=== PATIENT | female | born 1975 | race Caucasian/White ===

== ENCOUNTER 2023-10-27 00:54 | Emergency (ER) | payer BC, SELFPAY ==
[2023-10-27 00:57] VITALS: BP 116/72; PULSE 72; RESP 18; TEMP 36.8; O2SAT 98; BMI 29.2
--- NOTE | 2023-10-27 00:57 | ED.GENADULT ---
HPI - General Adult General Time Seen by Provider: 00:57 Date Seen: 10/27/23 Chief complaint: Abdominal Pain Stated complaint: Abdominal Pain Time Seen by Provider: 10/27/23 00:56 Source: patient, RN notes reviewed and old records reviewed Mode of arrival: ambulatory Limitations: no limitations History of Present Illness HPI narrative: 48-year-old female who presents today with abdominal pain. She has had mid abdominal pain since yesterday, she describes it as cramping ?like having a baby. ? She has had diarrhea with this, no blood in the stools. Denies vaginal bleeding, no urinary symptoms. Denies nausea or vomiting. Has not taken anything for pain. No cough, runny nose, fever. Related Data Previous Rx's ?Medication ?Instructions ?Recorded dicyclomine 20 mg tablet 20 mg PO QID PRN abdominal pain 10/27/23 #20 tabs Allergies Allergy/AdvReac Type Severity Reaction Status Date / Time No Known Drug Allergies Allergy Verified 10/27/23 01:04 [facility] Social History Smoking Status: Never smoker Do you use any of these nicotine containing products: None Non-prescribed substance use: denies use Exam Narrative: Exam Narrative: General: Well-developed and well-nourished, no acute distress Head: Atraumatic and normocephalic Eyes: Pupils are equal reactive, extraocular motions intact, conjunctiva clear ENT: External nose and ears are normal, posterior pharynx without erythema or exudate Neck: No midline cervical tenderness, full spontaneous range of motion the neck, trachea midline, no adenopathy Heart: Regular rate and rhythm no murmurs or thrills Lungs: Clear to auscultation bilaterally without wheezes or crackles Abdomen: Soft, suprapubic and periumbilical tenderness, nondistended with active bowel sounds Musculoskeletal: No tenderness, deformity, or edema Neurologic: Awake, alert, and oriented x3, no gross focal neurologic deficits, cranial nerves intact as tested Psych: Mood and affect are appropriate Skin: No rashes Const: Vital Signs, click to edit/add: Vital Signs - 24 hr 10/27/23 00:57 Temperature 98.2 F Pulse Rate [Left P ulse Oximeter] 72 Respiratory Rate 18 Blood Pressure [Ri ght Upper Arm] 116/72 Pulse Oximetry 98 Oxygen Delivery Me thod Room Air Course Course ED Course: Patient seen and examined, reviewed prior records. Patient with epigastric and midline lower abdominal pain since yesterday. Diarrhea, and crampy sensation. Patient says she does not have periods anymore, no prior surgeries. Labs was, fluids, Toradol ordered along with CT abdomen and pelvis to evaluate for colitis, enteritis, diverticulitis. Reevaluation(s) Time of Reevaluation #1: 01:57 Reevaluation #1: Labs ordered and independently interpreted by me with normal CBC, normal basic metabolic panel. CT scan abdomen of independent interpreted by me diffuse colitis. Patient will be started on Bentyl for pain, follow-up with primary care and consider GI referral. Vital Signs Vital signs: Initial Vital Signs Temperature 98.2 F 10/27/23 00:57 Temperature Source Temporal Artery Scan 10/27/23 00:57 Pulse Rate 72 10/27/23 00:57 Pulse Rhythm Regular 10/27/23 00:57 Respiratory Rate 18 10/27/23 00:57 Blood Pressure 116/72 10/27/23 00:57 Blood Pressure Mean 86 10/27/23 00:57 Blood Pressure Position Sitting 10/27/23 00:57 Pulse Oximetry 98 10/27/23 00:57 Oxygen Delivery Method Room Air 10/27/23 00:57 Vital Signs Temperature 98.2 F 10/27/23 00:57 Pulse Rate 72 10/27/23 00:57 Respiratory Rate 18 10/27/23 00:57 Blood Pressure 116/72 10/27/23 00:57 Pulse Oximetry 98 10/27/23 00:57 Oxygen Delivery Method Room Air 10/27/23 00:57 Temperature 98.2 F 10/27/23 00:57 Pulse Rate 72 10/27/23 00:57 Respiratory Rate 18 10/27/23 00:57 Blood Pressure 116/72 10/27/23 00:57 Pulse Oximetry 98 10/27/23 00:57 Oxygen Delivery Method Room Air 10/27/23 00:57 Medications Administered Medications: Discontinued Medications Generic Name Dose Route Start Last Admin Trade Name Freq PRN Reason Stop Dose Admin Sodium Chloride 1,000 mls @ 1,000 mls/hr 10/27/23 01:15 10/27/23 01:32 0.9 % Sodium Chloride 1000 Ml IV 10/27/23 02:14 1,000 mls/hr .Q1H KAREN Administration Ketorolac Tromethamine 15 mg 10/27/23 01:12 10/27/23 01:33 Ketorolac 15 Mg/Ml Inj IVP 10/27/23 01:13 15 mg ONCE ONE Administration Medical Decision Making Lab Data Labs: Lab Results 10/27/23 Range/Units 01:20 WBC 9.10 (4.50-11.00) K/uL RBC 4.12 (4.00-5.20) m/uL Hgb 12.6 (12.0-16.0) gm/dL Hct 37.3 (33.0-51.0) % MCV 91 (80-100) fL MCH 31 (26-34) pg MCHC 34 (32-36) gm/dL RDW Coeff of Maria Luz 13.8 (11.5-15.5) % Plt Count 170 (140-440) K/uL Neut % (Auto) 79.3 H (42.0-72.0) % Lymph % (Auto) 11.6 L (20-44) % Forest % (Auto) 8.5 (0.0-11.0) % Eos % (Auto) 0.3 (0.0-7.0) % Baso % (Auto) 0.2 (0.0-3.0) % Neut # (Auto) 7.20 H (1.7-7.0) K/uL Lymph # (Auto) 1.10 (0.90-2.90) K/uL Forest # (Auto) 0.80 (0.00-0.90) K/UL Eos # (Auto) 0.03 (0.00-0.50) K/uL Baso # (Auto) 0.02 (0.00-0.30) K/uL Abs Immat Gran (auto) 0.01 (0.00-0.30) K/uL Imm/Tot Granulo (auto) 0.1 % Sodium 137 (135-149) mmol/L Potassium 3.5 L (3.6-5.1) mmol/L Chloride 102 (96-114) mmol/L Carbon Dioxide 24 (20-32) mmol/L Anion Gap 11 (7-15) mEq/L BUN 12 (5-24) mg/dL Creatinine 0.6 (0.5-1.5) mg/dL Estimated Creat Clear 113.26 Estimated GFR 112 ml/min Glucose 108 (60-115) mg/dL Calcium 8.4 (8.4-10.6) mg/dL Discharge Plan Discharge Clinical Impression: Colitis Patient Disposition: Home, Self-Care Condition: Stable Instructions: Colitis (ED) Additional Instructions: Liquid diet for 24 hours Follow-up with your primary care provider next week You may take Imodium [id number] as needed for diarrhea Activity Level: No Restrictions Discharge Diet: Regular Prescriptions: New dicyclomine 20 mg tablet 20 mg PO QID PRN (Reason: abdominal pain) Qty: 20 0RF Follow Up/Referrals: REBECCA MELARA DO [Primary Care Provider] - Stand Alone Forms: MyHealth Info Instructions
--- NOTE | 2023-10-27 01:12 | CRLHL7_ITS ---
For Patients: As a result of the Century Cures Act, medical imaging exams and procedure reports are released immediately into your electronic medical record. You may view this report before your referring provider. If you have questions, please contact your health care provider. INDICATION: Abdominal pain. TECHNIQUE: CT abdomen and pelvis acquired with 66 cc Isovue 370 IV contrast. COMPARISON: None. FINDINGS: Lower chest: Unremarkable. Liver: Focal fatty infiltration adjacent to the falciform ligament. No suspicious masses. Gallbladder and bile ducts: Unremarkable. No stones or inflammation. No biliary ductal dilatation. Spleen: Unremarkable. Normal in size. No masses. Adrenal glands: Unremarkable. No nodules. Pancreas: Unremarkable. No mass or inflammation. Kidneys: Unremarkable. No suspicious masses, stones, or hydronephrosis. GI tract: Wall thickening and edema involving nearly the entire colon. No evidence of obstruction. Normal appendix. Lymph nodes: No lymphadenopathy. Vasculature: Unremarkable. Omentum/Peritoneum/Abdominal Wall: Small amount of free fluid in the pelvis. No focal fluid collection. No free air. Pelvis: Unremarkable. Bones: Unremarkable for age. IMPRESSION: Colitis of nearly the entire colon. Inflammatory bowel disease should be considered. Please note that all CT scans at this facility use dose modulation, iterative reconstruction, and/or weight-based dosing when appropriate to reduce radiation dose to as low as reasonably achievable. Dictated by Owen Smith MD @ 10/27/2023 2:23:03 AM (Electronically Signed)
--- OUTSIDE RECORDS SUMMARY | 2023-10-27 01:23 | XMS_ITS | Data Portability ---
Author Organization [employer] Steven [facility]a [facility] Address [address] [place] [address] [place] [address] Assessment No assessment recorded. Plan of Treatment Reminders Order Date Submit Date Provider Last Modified By Organization Details Last Modified Time Details Appointments None recorded. Lab CBC 2023 024 [facility], [address] [place], [address], 4 04:56:01 CMP, serum or plasma 2023 024 [facility], [address] [place], [address], 4 04:56:02 HbA1c (hemoglobi n A1c), blood 2023 024 [facility], [address] [place], [address], 4 04:56:03 lipid panel, serum 2023 024 [facility], [address] [place], [address], 4 04:56:03 TSH, serum or plasma 2023 024 [facility], [address] [place], [address], 4 04:56:03 Referral None recorded. Procedures None recorded. Surgeries None recorded. Imaging None recorded. Medication Orders selenium sulfide 2.3 % shampoo 2023 024 [facility], [facility] [place], [address], 11:34:31 Patient TargetsNo targets recorded. Patient Instructions Encounter Date Encounter Id Patient Instructions Last Modified By Organization Details Last Modified Time 03/08/2021 more expensive m eds available blessing Not available 03/08/2021 19:37:27 seen for depress ion in the past, but not depressed now blessing Not available 03/08/2021 19:49:34 11/17/2020 [id number] Looks like a subconjunctival hemorrhage. this should resolve over the next 1-2 weeks. see eye doctor if re occuring. [email or web address] Not available 11/17/2020 21:06:13 Reason for Referral None Reported. Medical Equipment None Reported. Medications Name Sig Start Date Stop Date Status Note LastModified by Organization Details LastModified Time ketoconazol e 2 % shampoo APPLY TO THE AFFECTED AREA(S), LATHER, LEAVE IN PLACE FOR 5 MINUTES, AND THEN RINSE OFF WITH WATER BY TOPICAL ROUTE ONCE DAILY active Not Available Not Available No t Available meloxicam 15 mg tablet TAKE 1 TABLET (15 MG) BY MOUTH ONCE DAILY. active Not Available Not Available No t Available penicillin V potassium 500 mg tablet take 1 tablet by oral route every 8 hours for 10 days to help tooth infection 09/22 completed Not Available Not Available Not Available citalopram 20 mg tablet TAKE 1 TABLET (20 MG) BY MOUTH EVERY MORNING. active Not Available Not Available No t Available Celexa 40 mg tablet take 1 tablet by oral route every day 03/08 completed Not Available Not Available Not Available mirtazapine 7.5 mg tablet TAKE 1 TABLET (7.5 MG) BY MOUTH AT BEDTIME. active Not Available Not Available No t Available Multiple Vitamins one a day 2020 active Not Available Not Available Not Avai lable selenium sulfide 2.3 % shampoo APPLY TO WET SCALP TOPICALLY ONCE WEEKLY WORK INTO A FULL LATHER,LE AVE ON SCALP FOR 2-3 MINUTES RINSE THOROUGHL Y THEN PAT DRY active Not Available Not Available No t Available Vitals Date Recorded Body height Body mass index (BMI) Body weight Heart rate Systolic blood pressure Diastolic blood pressure Provider Name and Address Organization Details Last Updated DateTime 149.86 cm 26.9 kg/m2 67468.7 9 g 64 /min 104 mm[Hg] 62 mm[Hg] Afua Cowan [facility] [employer] 20:52:35 Date Recorded Body height Body mass index (BMI) Body weight Provider Name and Address Organization Details Last Updated DateTime 03/08/2021 149.86 cm 27.9 kg/m2 36593.75 g Joss Clay MD [address] [place], [address], [facility] [employer] 03/08/2021 19:34:11 Date Recorded Heart rate Heart rate Systolic blood pressure Diastolic blood pressure Provider Name and Address Organization Details Last Updated DateTime 08/22/2023 61 /min 61 /min 95 mm[Hg] 60 mm[Hg] Karen Diaz MD [address] [place], [address] , [facility] [employer] 08/22/2023 11:45:50 Date Recorded Systolic blood pressure Diastolic blood pressure Provider Name and Address Organization Details Last Updated DateTime 09/26/2018 100 mm[Hg] 62 mm[Hg] Not Available [facility] 0 12/22/2019 12:57:28 Date Recorded Systolic blood pressure Diastolic blood pressure Provider Name and Address Organization Details Last Updated DateTime 08/10/2015 101 mm[Hg] 61 mm[Hg] Not Available [facility] 0 12/22/2019 12:57:28 Date Recorded Systolic blood pressure Diastolic blood pressure Provider Name and Address Organization Details Last Updated DateTime 04/11/2016 105 mm[Hg] 48 mm[Hg] Not Available [facility] 12/22/2019 12:57:28 Date Recorded Systolic blood pressure Diastolic blood pressure Provider Name and Address Organization Details Last Updated DateTime 04/11/2016 105 mm[Hg] 48 mm[Hg] Not Available [facility] 0 12/22/2019 12:57:28 Date Recorded Systolic blood pressure Diastolic blood pressure Provider Name and Address Organization Details Last Updated DateTime 08/02/2017 105 mm[Hg] 62 mm[Hg] Not Available [facility] 0 12/22/2019 12:57:28 Date Recorded Systolic blood pressure Diastolic blood pressure Provider Name and Address Organization Details Last Updated DateTime 09/20/2017 108 mm[Hg] 49 mm[Hg] Not Available [facility] 0 12/22/2019 12:57:28 Date Recorded Systolic blood pressure Diastolic blood pressure Provider Name and Address Organization Details Last Updated DateTime 03/07/2018 112 mm[Hg] 38 mm[Hg] Not Available [facility] 0 12/22/2019 12:57:28 Date Recorded Systolic blood pressure Diastolic blood pressure Provider Name and Address Organization Details Last Updated DateTime 09/20/2017 114 mm[Hg] 61 mm[Hg] Not Available [facility] 0 12/22/2019 12:57:28 Date Recorded Systolic blood pressure Diastolic blood pressure Provider Name and Address Organization Details Last Updated DateTime 07/31/2019 116 mm[Hg] 58 mm[Hg] Not Available [facility] 0 12/22/2019 12:57:28 Date Recorded Systolic blood pressure Diastolic blood pressure Provider Name and Address Organization Details Last Updated DateTime 05/02/2016 123 mm[Hg] 56 mm[Hg] Not Available [facility] 0 12/22/2019 12:57:28 Date Recorded Systolic blood pressure Diastolic blood pressure Provider Name and Address Organization Details Last Updated DateTime 09/23/2015 91 mm[Hg] 58 mm[Hg] Not Available [facility] 12:57:28 Date Recorded Systolic blood pressure Diastolic blood pressure Provider Name and Address Organization Details Last Updated DateTime 09/05/2018 91 mm[Hg] 61 mm[Hg] Not Available [facility] 12:57:28 Date Recorded Systolic blood pressure Diastolic blood pressure Provider Name and Address Organization Details Last Updated DateTime 10/11/2017 99 mm[Hg] 60 mm[Hg] Not Available [facility] 12:57:28 Social History None recorded. Functional Status None recorded. Mental Status None recorded. Family History Relationship Description Onset Age of this Age Resolved Age Notes Father Malignant tumor of pharynx throat cancer in father Mother Malignant tumor of salivary gland mother had a cancer in cheek/face, likely salivary gland Medical History No medical history recorded. Gynecological HistoryNo gynecological history recorded. Obstetrics History GPAL:G 0 P 0 0 0 0 Past Encounters Encounter ID Performer Location Encounter Start Date Encounter Closed Date Diagnosis/Indication Diagnosis SNOMED-CT Code [id number] Seth Nam MD [facility] [address] [facility] [place] [address] 11/17/2020 20:39:56 11/17/2020 21:15:33 Subconjunctival hemorrhage of left eye [id number] Joss Clay MD [facility] [address] [place] [address] 03/08/2021 18:15:11 03/08/2021 19:08:44 Loss of hair [id number] [id number] Karen Diaz MD [facility] [address] [place] [address] 08/22/2023 11:01:14 08/22/2023 11:46:24 Seborrheic dermatitis of scalp 154685189 Severe dry skin 10743324 2 Fatigue 07741391 Health Concerns Section Related Observation LastModified by Organization Detai ls LastModified Time None Recorded Concern Status LastModified by Organization Details LastModified Time None Recorded Advance Directives Directive None Recorded Payers Encounter Date Sequence Insurance Name Policy Number Policy Barrios Covered Member ID Barrios Member ID Guarantor Name 08/22/2023 SLIDING FEE SCHEDULE - DISCOUNT Sarita Whitman Srinivasan 03/08/2021 SLIDING FEE SCHEDULE - DISCOUNT Sarita Sneedial Srinivasan 11/17/2020 SLIDING FEE SCHEDULE - DISCOUNT Sarita Whitman Srinivasan Notes Date Note Type Note Provider Name and Address Organization Details Recorded Time 11/17/2020 text/html HPI Notes: woke up with red eye on Sunday morning. no mattering or drainage. no history of glaucoma. no loss of vision. Seth Nam MD [address] [place], [address], [facility] [employer] 11/17/2020 21:11:41 03/08/2021 text/html HPI Notes: two months of hair loss, mainly top, menopause 6 mo ago, no hot flashes Joss Clay MD [address] [place], [address], [facility] [employer] 03/08/2021 19:51:20 08/22/2023 text/html HPI Notes: Shari franco is in today to discuss a few symptoms: - dry skin, more notable on back and extremities - dry/itchy scalp, also as noted a small skin breakdown/abrasion behind L ear. Has tried OTC shampoos without relief - sore throat, had been present intermittently for a few months when she made appt. It's better now, ocassionally noted in the morning with clear phlegm, no hemoptysis. No cough, no fever, no sick contacts. Hasn't taken anything for symptoms. No epigastric pain - recent dental infection; wasn't able to be seen in clinic, but took an abx from a store in [place] and improved - still not sleeping terribly well; uses Mirtazepine prn but notes hand cramping when she takes this. We discussed taking it with Magnesium at night to minimize this effect Nonsmoker, works at [employer], lives with and children. Karen Diaz MD [address] [place], [address], [facility] 08/22/2023 12:00:47 OBGyn Episode No OBEpisode recorded.
--- OUTSIDE RECORDS SUMMARY | 2023-10-27 01:23 | XMS_ITS | Clinical Summary ---
Author Organization [facility] Address [place], [place] [address] Care Team Providers Care Oil Processing Technician Name Role Phone Pcp, No Primary Care Provider Unavailabl e Allergies Active Allergy Reactions Criticality Noted Date Comments Iodinated Contrast Media Rash 12/18/2007 Should consider pre-medication with future CT scans Shellfish Containing Products Rash 04/08/2014 Medications Medication Sig Dispensed Refills Start Date End Date Status citalopram (CELEXA) 20 mg tabletIndications:Anxi ety,Moderate episode of recurrent major depressive disorder (HC) Take 1 Tablet (20 mg) by mouth every morning. 90 Tablet 1 04/04/2022 Active famotidine (PEPCID) 40 mg tabletIndications:Naye roesophageal reflux disease, unspecified whether esophagitis present Take 1 Tablet (40 mg) by mouth once daily. 90 Tablet 1 04/04/2022 Active Active Problems Problem Noted Date Diagnosed Date Other person consulting on behalf of another per son 08/08/2011 Anxiety 08/05/2010 Other chronic allergic conjunctivitis 10/06/2009 Moderate episode of recurrent major depressive d isorder 03/26/2008 Other insomnia 03/26/2008 Rosacea Allergic rhinitis, cause unspecified Encounters Date Type Department Care Team Description 09/21/[address] [facility] [address] [place] [address] Shweta Arthur MD Results 09/20/2023 2:45 PM CDT Office Visit [facility] [address] [place] [address] Shweta Arthur MD Throat Problem (sore throat, aching/burning); Fever (chills); Sinus Problem (x1 day); Pain 09/20/2023 Travel 08/06/[address] [facility] [address] [place] [address] Pcp, No Ear Pain/problem (Walked into the clinic no openings) from Last 3 Months Immunizations Name Administration Dates Next Due AMB Influenza, IIV3 (Age >=3 years)(Flu Clinic Only) 03/02/2012,03/18/2011,03/24/2008 AMB Influenza, IIV4 PF (=>6 mos Flulaval,Fluzone Fluarix)(Flu Clinic Only) 03/17/2014 Influenza, IIV3 (Age 6-35 mos) 03/18/2011 Influenza, IIV3 (Age >=3 years) 03/05/2009,04/29,04/27/2006 Influenza, IIV4 (=>6mos) MDV 03/21/2018,06/03/20 15 MMR 02/12/2021 Tdap 02/12/2021,11/05/2013,08/05/2010 Family History Medical History Relation Name Comments Good Health Brother x1 Good Health Father 60 Good Health Mother 60 Good Health Sister x9 Relation Name Status Comments Brother Father Mother Sister Social History Tobacco Use Types Packs/Day Years Used Date Smoking Tobacco: Never Smokeless Tobacco: Never Tobacco Cessation:Counseling Given: Yes Alcohol Use Standard Drinks/Week Comments No 0 (1 standard drink = 0.6 oz pur e alcohol) PHQ-2 Answer Date Recorded PHQ-2 TOTAL SCORE 0 04/04/2022 Social Connections Answer Date Recorded Frequency of Communication with Friends and Fami ly 0 09/20/2023 Financial Resource Strain Answer Date R ecorded Difficulty of Paying Living Expenses 3 09/20/2023 Difficulty of Paying Living Expenses Not on file 09/20/2023 Food Insecurity Answer Date Recorded Worried About Running Out of Food in the Last Ye ar 1 09/20/2023 Transportation Needs Answer Date Record ed Lack of Transportation (Medical) 1 09/20/2023 Housing Stability Answer Date Recorded Unable to Pay for Housing in the Last Year 1 09/20/2023 Sex and Gender Information Value Date Recorded Sex Assigned at Not on file Gender Identity Not on file Sexual Orientation Not on file Obstetrics History Para Term AB IAB SAB Ectopic Multiple Livin g Live Births 4 3 3 0 0 0 0 0 3 Date Outcome GA Total Labor Labor/2nd/3rd Weight Sex Delivery Anes PTL Ankita A1 A5 Name Cl in Comments:System Genera jef. Please review and update details. 1999 Term 40w 0d 48h 00m/ 3.18 kg (7 lb) Vag 2001 Term 40w 0d 11h 00m/ 2.72 kg (6 lb) Vag 2004 Term 40w 0d 9h 00m/ 2.72 kg (6 lb) Vag Comments x3 Last Filed Vital Signs Vital Sign Reading Time Taken Comments Blood Pressure 128/83 09/20/2023 3:03 PM CDT Pulse 84 09/20/2023 3:03 PM CDT Temperature 37.3 ??C (99.1 ??F) 09/20/2023 3:03 PM CD T Respiratory Rate 16 12/12/2021 8:27 AM CDT Oxygen Saturation 99% 09/20/2023 3:03 PM CDT Inhaled Oxygen Concentration - - Weight 59 kg (130 lb) 09/20/2023 3:03 PM CDT Height 149 cm (4' 10.66) 11/10/2022 10:39 AM CD T Body Mass Index 26.56 11/10/2022 10:39 AM CDT Plan of Treatment Health Maintenance Due Date Last Done Comments Hepatitis C screening for age 18-79 1995 Pap test for age 21-65 08/23/2015 3, 11/11/2008, 06/12/2007, Additional history exists Colonoscopy through age 75 2022 Lipids for age 45-75 2022 08/05/2010 Mammogram for age 45-75 2022 COVID-19 vaccine series (2022- season) 2023 Depression screening for age 12+ 04/04/2023 04/04/2022, 03/13/2022, 03/10/2022, Additional history exists BMI (ht and wt on same day) for age 18+ 11/11/2023 11/10/2022, 07/28/2022, 03/03/2017 Influenza for age 9-49 02/03/2024 8, 06/03/2015, 03/17/2014, Additional history exists Tetanus booster 02/12/2031 02/12/2021, 09/2013, 08/05/2010 HIV for age 15-65 Completed 05/27/2013 Tdap Completed 02/12/2021, 09/2013, 08/05/2010 Pneumococcal series for age 6-64 Aged Out No longer eligible based on patient's age to complete this topic Procedures Procedure Name Priority Date/Time Associated Diagnosis Comments COVID-19 MOLECULAR Routine 09/20/2023 3: 06 PM CDT Fever, unspecified fever cause THROAT RAPID STREP ONLY CLINIC Routine 09/20/2023 3:06 PM CDT Sore throat ANTI HIV 1/2 Routine 05/27/2013 10:14 AM EXHIBITION SPECIALIST Supervision of other normal FUEL VERIFICATION TECHNICIAN THIN PREP PAP SCREEN IMAGED Routine 08/22/2012 12:39 PM CDT Routine general medical examination at a health care facility LIPID PANEL W REFLEX MEASURED LDL Routine 08/05/2010 10:41 AM EXHIBITION SPECIALIST Lipid screening from Last 3 Months or Most Recently Relevant to Health Maintenance Results * COVID-19 MOLECULAR (09/20/2023 3:06 PM CDT) COVID 19 [facility] MOLEC[facility] Negative Negative 09/21/2023 1:20 AM CDT [facility]- N[facility]AL [facility]ORATORY TESTING LABORATORY [facility] 09/21/2023 1:20 AM CDT [facility] Comment:Specimen submitted t o [facility] for testing. Other SPECIMEN FROM NASAL FOSSAE / Unknown Non-Blood / Unknown 09/20/2023 3:06 PM CDT 09/20/2023 3:11 PM CDT Narrative [facility] - 09/21/2023 1:20 AM CDT All PCR tests are subject to false negative result due to variability in viral load and collection technique. A negative result does not rule out a SARS-CoV-2 infection. Clinical correlation required. Shweta Arthur MD MICROBIOLOGY [facility] [address] [place] [address], * THROAT RAPID STREP ONLY CLINIC (09/20/2023 3:06 PM CDT) THROAT RAPID STREP A ANTIGEN Negative 09/20/2023 3:21 PM CDT [facility] Throat SPECIMEN FROM THROAT / Unknown Non-Blood / Unknown 09/20/2023 3:06 PM CDT 09/20/2023 3:11 PM CDT Shweta Arthur MD MICROBIOLOGY [facility] [address] [place] [address], * ANTI HIV 1/2 (05/27/2013 10:14 AM EXHIBITION SPECIALIST) Pathologist [facility] ANTI HIV 1/2 Non-reacti ve [facility] Blood specimen (specimen) BLOOD SPECIMEN / Unknown 05/27/2013 10:14 AM EXHIBITION SPECIALIST 05/27/2013 10:02 AM EXHIBITION SPECIALIST Callie Sarabia NP SEND OUTS [facility] INTERNAL ZIP [address] [place] [address] * FUEL VERIFICATION TECHNICIAN THIN PREP PAP SCREEN IMAGED (08/22/2012 12:39 PM CDT) Pathologist [facility] CYTOLOGY CYTOPATHOLOGY REPORT [facility] trippiece/[facility] Status: Final Status ?[id number] CLINICAL INFORMATION Last Date of LMP ? :Injection Last Pap Date ?:11/11/2008 Last Pap Result ?:NIL ABN [place]/Bx Past 5 YRS :None Hormone Usage ?:Depo Menstrual Status ? :Irregular Periods [place]/Bx done today ? :No Additional Information :None given HPV Request ?:HPV if ASCUS SPECIMEN SOURCE ?:Cervical/vagina l ThinPrep Vial, screening SPECIMEN ADEQUACY ?:Satisfactory for evaluation Endocervical component ? present. INTERPRETATION/RES ULT Negative for intraepithelial lesion or malignancy (NIL) Cytology 1st Screener ??:lgb Signed by ?:lgb This specimen was screened by the FDA approved ThinPrep Imaging System and manually reviewed. NOTE: ??The Pap test is a screening technique, not a diagnostic procedure. ??It is used ??primarily to screen for squamous cancers and precursor lesions. ??Published studies have shown that it is subject to both false negative and false positive results. ??The pap test should not be used as the sole means to diagnose or exclude pre-malignant and malignant lesions. COLLECTED:08/22/12 ? ACCESSIONED: ??08/23/12 ?? SIGNED: ??08/27/12 [facility] PAP [place] CODE NIL [facility] Tissue specimen (specimen) (Cervical/Vagina l) 08/22/2012 12:39 PM CDT 08/22/2012 12:06 PM CDT Guillermo Ochoa MD PATHOLOGY/CYTOLO GY [facility] INTERNAL ZIP [address] [place] [address] [phone] * LIPID PANEL W REFLEX MEASURED LDL (08/05/2010 10:41 AM EXHIBITION SPECIALIST) CHOLESTEROL,TOTAL 140 110 - 199 mg/dL [facility] TRIGLYCERIDES 45 <150 mg/dL [facility] HDL CHOLESTEROL 55 >40 mg/dL [facility] CHOL/HDL RATIO 2.55 <4.51 [facility] LDL CHOLESTEROL 76 <131 mg/dL [facility] PATIENT STATUS Fasting [facility] Blood specimen (specimen) BLOOD SPECIMEN / Unknown 08/05/2010 10:41 AM EXHIBITION SPECIALIST 08/05/2010 10:38 AM EXHIBITION SPECIALIST Guillermo Ochoa MD CHEMISTRY [facility] [address] [place] [address] from Last 3 Months or Most Recently Relevant to Health Maintenance Care Teams Oil Processing Technician Relationship Specialty Start Date End Date Pcp, No . PCP - General 06/08/22
--- OUTSIDE RECORDS SUMMARY | 2023-10-27 01:23 | XMS_ITS | Continuity of Care Document ---
Author Organization [place] [facility] OFFICE Address [address] [place] [address] Assessment No assessment recorded. Plan of Treatment Reminders Order Date Submit Date Provider Last Modified By Organization Details Last Modified Time Details Appointments None recorded. Lab CBC 2023 024 [facility], [address] [place], [address], 4 04:56:01 CMP, serum or plasma 2023 024 [facility], [address] [place], [address], 4 04:56:02 HbA1c (hemoglobi n A1c), blood 2023 024 [facility], [address] [place], [address], 4 04:56:03 lipid panel, serum 2023 024 [facility], [address] [place], [address], 4 04:56:03 TSH, serum or plasma 2023 024 [facility], [address] [place], [address], 4 04:56:03 Referral None recorded. Procedures None recorded. Surgeries None recorded. Imaging None recorded. Medication Orders selenium sulfide 2.3 % shampoo 2023 024 [facility], [address] [place] [address], [address], 11:34:31 Patient TargetsNo targets recorded. Patient InstructionsNo instructions recorded. Reason for Referral None Reported. Medical Equipment [...] Available No t Available Vitals Date Recorded Heart rate Heart rate Systolic blood pressure Diastolic blood pressure Provider Name and Address Organization Details Last Updated DateTime 08/22/2023 61 /min 61 /min 95 mm[Hg] 60 mm[Hg] Karen Diaz MD [address] [place], [address] , [place] [facility] 08/22/2023 11:45:50 Social History None recorded. Functional Status None [...] Encounter Closed Date Diagnosis/Indication Diagnosis SNOMED-CT Code [id number] Karen Diaz MD [facility] [address] [place] [address] 08/22/2023 11:01:14 08/22/2023 11:46:24 Seborrheic dermatitis of scalp [id number] Severe dry skin [id number] 2 Fatigue [id number] Health Concerns Section Related Observation LastModified by Organization Detai ls LastModified Time None Recorded Concern Status LastModified by Organization Details LastModified Time None Recorded Payers Encounter Date Sequence Insurance Name Policy Number Policy Barrios Covered Member ID Barrios Member ID Guarantor Name 08/22/2023 SLIDING FEE SCHEDULE - DISCOUNT Sarita Srinivasan Notes Date Note Type Note Provider Name and Address Organization Details Recorded Time 08/22/2023 text/html HPI Notes: Shari franco is [...] took an abx from a store in [place] and improved - still not sleeping terribly well; uses Mirtazepine prn but notes hand cramping when she takes this. We discussed taking it with Magnesium at night to minimize this effect Nonsmoker, works at [employer], lives with and children. Karen Diaz MD [facility] [place], [address], [facility] 08/22/2023 12:00:47 OBGyn Episode No OBEpisode recorded.
[2023-10-27 01:27] LABS: Basophils Absolute Auto 0.02 K/uL (0.00-0.30); Basophils Percent Auto 0.2 % (0.0-3.0); Eosinophils Absolute Auto 0.03 K/uL (0.00-0.50); Eosinophils Percent Auto 0.3 % (0.0-7.0); Hematocrit 37.3 % (33.0-51.0); Hemoglobin* 12.6 gm/dL (12.0-16.0); Immature Granulocytes Abs Auto 0.01 K/uL (0.00-0.30); Immature Granulocytes Pct Auto 0.1 %; Lymphocytes Percent Auto 11.6 % (20-44); Mean Corpuscular HGB Conc 34 gm/dL (32-36); Mean Corpuscular Hemoglobin 31 pg (26-34); Mean Corpuscular Volume 91 fL (80-100); Monocytes Percent Auto 8.5 % (0.0-11.0); Neutrophils Percent Auto 79.3 % (42.0-72.0); Platelet Count* 170 K/uL (140-440); RDW Coefficient of Variation % 13.8 % (11.5-15.5); Red Blood Count 4.12 m/uL (4.00-5.20)
[2023-10-27] MEDS: 0.9 % SODIUM CHLORIDE 1000 ml 1,000 ML IV (01:32)
[2023-10-27] MEDS: KETOROLAC 15 MG/ML inj IVP (01:33)
[2023-10-27 01:34] LABS: Slide Review Reflex No
[2023-10-27 01:36] LABS: Chloride* 102 mmol/L (96-114); Sodium* 137 mmol/L (135-149)
[2023-10-27 01:37] LABS: Potassium* 3.5 mmol/L (3.6-5.1)
--- NOTE | 2023-10-27 01:37 | ED.NURSE ---
pt to CT
[2023-10-27 01:39] LABS: Anion Gap 11 mEq/L (7-15); Carbon Dioxide* 24 mmol/L (20-32); Creatinine* 0.6 mg/dL (0.5-1.5); Est. Creatinine Clearance* 113.26; Estimated Glomerular Filt Rate 112 ml/min
[2023-10-27 01:40] LABS: Blood Urea Nitrogen* 12 mg/dL (5-24); Calcium* 8.4 mg/dL (8.4-10.6); Glucose* 108 mg/dL (60-115)
== END 2023-10-27 02:38 | disposition home or self-care (01) ==
PROVIDERS: Emergency Provider Family Medicine; PCP Student in an Organized Health Care Education/Training Program
DX: K52.9 Noninfective gastroenteritis and colitis, unspecified (principal)
CPT/HCPCS: 36415; 74177; 80048; 81001; 85025; 96374; 99284; J1885; J7030; Q9967

== ENCOUNTER 2024-02-16 10:43 | Outpatient (CLI) | payer BC, SELFPAY ==
--- OUTSIDE RECORDS SUMMARY | 2024-02-17 16:20 | XMS_ITS | Clinical Summary ---
Author Organization [facility] Address [place], [place] [address] Care Team Providers Care Shoes Hand Sewer Name Role Phone [facility], [facility] Primary Care Pr ovider Allergies Active Allergy Reactions Criticality Noted Date Comments Iodinated Contrast Media Rash 12/18/2007 Should consider pre-medication with future CT scans Shellfish Containing Products Rash 04/08/2014 Medications Medication Sig Dispensed Refills Start Date End Date Status ketoconazole 2% shampoo (NIZORAL) 2 % shampoo APPLY TO THE AFFECTED AREA(S), LATHER, LEAVE IN PLACE FOR 5 MINUTES, AND THEN RINSE OFF WITH WATER BY TOPICAL ROUTE ONCE DAILY Active selenium sulfide 2.3 % sham APPLY TO WET SCALP TOPICALLY ONCE WEEKLY WORK INTO A FULL LATHER,LEAVE ON SCALP FOR 2-3 MINUTES RINSE THOROUGHLY THEN PAT DRY Active triamcinolone (ARISTOCORT; KENALOG) 0.1 % creamIndications:Ski n rash Apply topically to affected area(s) three times daily. 80 g 11/13/2023 Active Active Problems Problem Noted Date Diagnosed Date Other person consulting on behalf of another per son 08/08/2011 Anxiety 08/05/2010 Other chronic allergic conjunctivitis 10/06/2009 Moderate episode of recurrent major depressive d isorder 03/26/2008 Other insomnia 03/26/2008 Rosacea Allergic rhinitis, cause unspecified Encounters Date Type Department Care Team Description 02/06/2024 Nurse Triage [facility] [address] [place] [address] Clinic, No Pcp Or Urinary Problem 12/05/2023 Refill [facility] [address] [place] [address] Nidia Kraft DO Refill Request (Mirtazapine) from Last 3 Months Immunizations Name Administration [...] Outcome GA Total Labor Labor/2nd/3rd Weight Sex Type Anes PTL Ankita A1 A5 Name Clin Comments:System Genera jef. Please review and update details. 1999 Term 40w 0d 48h 00m/ 3.18 kg (7 lb) Vag 2001 Term 40w 0d 11h 00m/ 2.72 kg (6 lb) Vag 2004 Term 40w 0d 9h 00m/ 2.72 kg (6 lb) Vag Comments x3 Last Filed Vital Signs Vital Sign Reading Time Taken Comments Blood Pressure 114/76 11/13/2023 9:59 AM CDT Pulse 55 11/13/2023 9:59 AM CDT Temperature 37.3 ??C (99.1 ??F) 09/20/2023 3:03 PM CD T Respiratory Rate 16 12/12/2021 8:27 AM CDT Oxygen Saturation 98% 11/13/2023 9:59 AM CDT Inhaled Oxygen Concentration - - Weight 60.6 kg (133 lb 8 oz) 11/13/2023 9:59 AM CDT Height 149 cm (4' 10.66) 11/13/2023 9:59 AM CDT Body Mass Index 27.28 11/13/2023 9:59 AM CDT Plan of Treatment Health Maintenance Due Date Last Done Comments Hepatitis C screening for age 18-79 1995 Pap test for age 21-65 08/23/2015 3, 11/11/2008, 06/12/2007, Additional history exists Colonoscopy through age 75 2022 Lipids for age 45-75 2022 08/05/2010 Mammogram for age 45-75 2022 Depression screening for age 12+ 04/04/2023 04/04/2022, 03/13/2022, 03/10/2022, Additional history exists COVID-19 vaccine series (2022- season) 2024 Influenza for age 9-49 02/03/2024 8, 06/03/2015, 03/17/2014, Additional history exists BMI (ht and wt on same day) for age 18+ 11/12/2024 11/13/2023, 11/10/2022, 07/28/2022, Additional history exists Tetanus booster 02/12/2031 02/12/2021, 06/09/2013, 08/05/2010 HIV for age 15-65 Completed 05/27/2013 Tdap Completed 02/12/2021, 06/0 09/2013, 08/05/2010 Pneumococcal series for age 6-64 Aged Out No longer eligible based on patient's age to complete this topic Procedures Procedure Name Priority Date/Time Associated Diagnosis Comments ANTI HIV 1/2 Routine 05/27/2013 10:14 AM PMO PROJECT MANAGER Supervision of other normal [place] THIN PREP PAP SCREEN IMAGED Routine 08/22/2012 12:39 PM CDT Routine general medical examination at a health care facility LIPID PANEL W REFLEX MEASURED LDL Routine 08/05/2010 10:41 AM PMO PROJECT MANAGER Lipid screening from Last 3 Months or Most Recently Relevant to Health Maintenance Results * ANTI HIV 1/2 (05/27/2013 10:14 AM PMO PROJECT MANAGER) ANTI HIV 1/2 Non-reacti ve [facility] Blood specimen (specimen) BLOOD SPECIMEN / Unknown 05/27/2013 10:14 AM PMO PROJECT MANAGER 05/27/2013 10:02 AM PMO PROJECT MANAGER Callie Sarabia REAL ESTATE ECONOMIST SEND OUTS [facility] INTERNAL ZIP [address] [place], [place] [id number] * [place] THIN PREP PAP SCREEN IMAGED (08/22/2012 12:39 PM CDT) Pathologist [facility] CYTOLOGY CYTOPATHOLOGY REPORT [facility] Status: Final Status ?[id number] CLINICAL INFORMATION Last Date of LMP ? :Injection Last Pap Date ?:11/11/2008 Last Pap Result ?:NIL ABN [place]/Bx Past 5 YRS :None Hormone Usage ?:Depo Menstrual Status ? :Irregular Periods [place]/Bx done today ? :No Additional Information :None [...] COLLECTED:08/22/12 ? ACCESSIONED: ??08/23/12 ?? SIGNED: ??08/27/12 [facility] PAP [place] CODE NIL [facility] Tissue specimen (specimen) (Cervical/Vagina l) 08/22/2012 12:39 PM CDT 08/22/2012 12:06 PM CDT Guillermo Ochoa MD PATHOLOGY/CYTOLO GY [facility] INTERNAL ZIP [address] [place] [address] * LIPID PANEL W REFLEX MEASURED LDL (08/05/2010 10:41 AM PMO PROJECT MANAGER) CHOLESTEROL,TOTAL 140 110 - 199 mg/dL [facility] TRIGLYCERIDES 45 <150 mg/dL [facility] HDL CHOLESTEROL 55 >40 mg/dL [facility] CHOL/HDL RATIO 2.55 <4.51 [facility] LDL CHOLESTEROL 76 <131 mg/dL [facility] PATIENT STATUS Fasting [facility] Blood specimen (specimen) BLOOD SPECIMEN / Unknown 08/05/2010 10:41 AM PMO PROJECT MANAGER 08/05/2010 10:38 AM PMO PROJECT MANAGER Guillermo Ochoa MD CHEMISTRY [facility] [address] [place] [address] from Last 3 Months or Most Recently Relevant to Health Maintenance Care Teams Shoes Hand Sewer Relationship Specialty Start Date End Date Clinic, [facility] [address] [place], [place] [phone] PCP - General 01/14/24
--- OUTSIDE RECORDS SUMMARY | 2024-02-17 16:20 | XMS_ITS | Data Portability ---
Author Organization [employer] Steven mena [facility] Address [address] [place] [address] [place] [address] Assessment No assessment recorded. Plan of Treatment Reminders Order Date Submit Date Provider Last Modified By Organization Details Last Modified Time Details Appointments None recorded. Lab CBC 2023 024 [facility], [address] [place], [address], 4 04:56:01 CMP, serum or plasma 2023 024 [facility], [address] [place], [address], 4 04:56:02 HbA1c (hemoglobi n A1c), blood 2023 024 [facility], [address] [place], [address], 4 04:56:03 lipid panel, serum 2023 024 [facility], [address] [place], [address], 4 04:56:03 TSH, serum or plasma 2023 024 [facility], [address] [place], [address], 4 04:56:03 Referral None recorded. Procedures None recorded. Surgeries None recorded. Imaging None recorded. Medication Orders selenium sulfide 2.3 % shampoo 2023 024 [facility], [facility] [place], [address], 11:34:31 Patient TargetsNo targets recorded. Patient Instructions Encounter Date Encounter Id Patient Instructions Last Modified By Organization Details Last Modified Time 11/17/2020 [id number] Looks like a subconjunctival hemorrhage. this should resolve over the next 1-2 weeks. see eye doctor if re occuring. [email or web address] Not available 11/17/2020 21:06:13 03/08/[id number] more expensive m eds available blessing Not available 03/08/2021 19:37:27 seen for depress ion in the past, but not depressed now blessing Not available 03/08/2021 19:49:34 Reason for Referral None Reported. Medical Equipment [...] Last Updated DateTime 149.86 cm 26.9 kg/m2 92830.7 9 g 64 /min 104 mm[Hg] 62 mm[Hg] Afua Cowan [facility] [employer] 20:52:35 Date Recorded Body height Body mass index (BMI) Body weight Provider Name and Address Organization Details Last Updated DateTime 03/08/2021 149.86 cm 27.9 kg/m2 90295.75 g Joss Clay MD [address] [place], [address] 03/08/2021 19:34:11 Date Recorded Heart rate Heart rate Systolic blood pressure Diastolic blood pressure Provider Name and Address Organization Details Last Updated DateTime 08/22/2023 61 /min 61 /min 95 mm[Hg] 60 mm[Hg] Karen Diaz MD [address] [place], [address] [facility] [employer] 08/22/2023 11:45:50 Social History None recorded. Functional [...] Encounter Closed Date Diagnosis/Indication Diagnosis SNOMED-CT Code Diagnosis ICD10 Code [id number] Seth Nam MD [facility] [address] [place] [address] 11/17/2020 20:39:56 11/17/2020 21:15:33 Subconjunctival hemorrhage of left eye 8900487545 80278 H11.32 [id number] Joss Clay MD [facility] [address] [place] [address] 03/08/2021 18:15:11 03/08/2021 19:08:44 Loss of hair 756716878 L65.9 [id number] Karen Diaz MD [facility] [address] [place] [address] 08/22/2023 11:01:14 08/22/2023 11:46:24 Seborrheic dermatitis of scalp 415949209 L21.0 Severe dry skin 89531406 2 L85.3 Fatigue 53706678 R53.83 Health Concerns Section Related Observation LastModified by Organization Detai ls LastModified Time None Recorded Concern Status LastModified by Organization Details LastModified Time None Recorded Advance Directives Directive None Recorded Payers Encounter Date Sequence Insurance Name Policy Number Policy Barrios Covered Member ID Barrios Member ID Guarantor Name 11/17/2020 SLIDING FEE SCHEDULE - DISCOUNT Sarita Srinivasan 03/08/2021 SLIDING FEE SCHEDULE - DISCOUNT Sarita Whitman Srinivasan 08/22/2023 SLIDING FEE SCHEDULE - DISCOUNT Sarita Whitman Srinivasan Notes Date Note Type Note Provider Name and Address Organization Details Recorded Time 11/17/2020 text/html HPI Notes: woke up with red eye on Sunday morning. no mattering or drainage. no history of glaucoma. no loss of vision. Seth Nam MD [address] [place], [address], [facility] [employer] [facility] 11/17/2020 21:11:41 03/08/2021 text/html HPI Notes: two months of hair loss, mainly top, menopause 6 mo ago, no hot flashes Joss Clay MD [address] [place], [address], [facility] [employer] [facility] 03/08/2021 19:51:20 08/22/2023 text/html HPI Notes: Shari [...] took an abx from a store in [place] and improved - still not sleeping terribly well; uses Mirtazepine prn but notes hand cramping when she takes this. We discussed taking it with Magnesium at night to minimize this effect Nonsmoker, works at [employer], lives with and children. Karen Diaz MD [address] [place], [address], [facility] - [facility] 08/22/2023 12:00:47 OBGyn Episode No OBEpisode recorded.
== END 2024-02-16 10:44 | disposition home or self-care (01) ==
LOC: NFLDREF 02-17 16:19
PROVIDERS: PCP Student in an Organized Health Care Education/Training Program; Referring Provider Student in an Organized Health Care Education/Training Program; Visit Provider Physician Assistant
DX: N39.0 Urinary tract infection, site not specified (principal)
CPT/HCPCS: 87086

== ENCOUNTER 2024-06-13 06:35 | Outpatient (CLI) | payer BC, SELFPAY ==
--- NOTE | 2024-06-13 07:48 | P.ANES_ITS ---
Anesthesia Charges Start Date/Time Anesthesia Start Date: 06/13/24 Anesthesia Start Time: 07:22 Stop Date/Time Anesthesia Stop Date: 06/13/24 Anesthesia Stop Time: 07:47 Coding CPT Codes CPT Codes: GINA LWR INTST SCR COLSC - 14654 ([id number]) P1 - NORMAL HEALTHY PATIENT, QK - ADVANCED PRACTICE NURSE PSYCHOTHERAPIST 2-4 CNCRNT ANES PROC, QX - FUR FLOOR WORKER SVC W/ MED DIRECTION
--- NOTE | 2024-06-13 07:48 | W.ANESCHARGE ---
Anesthesia Charges Start Date/Time Anesthesia Start Date: 06/13/24 Anesthesia Start Time: 07:22 Stop Date/Time Anesthesia Stop Date: 06/13/24 Anesthesia Stop Time: 07:47 Coding CPT Codes CPT Codes: GINA LWR INTST SCR COLSC - 58281 ([id number]) P1 - NORMAL HEALTHY PATIENT, QK - PROJECT SCIENTIST 2-4 CNCRNT ANES PROC, QX - FIBERGLASS QUALITY TECHNICIAN SVC W/ MED DIRECTION
--- NOTE | 2024-06-13 10:45 | P.ANES_ITS ---
Anesthesia Charges Start Date/Time Anesthesia Start Date: 06/13/24 Anesthesia Start Time: 07:22 Stop Date/Time Anesthesia Stop Date: 06/13/24 Anesthesia Stop Time: 07:47 Coding CPT Codes CPT Codes: GINA LWR INTST SCR COLSC - 18309 ([id number]) QK - CANOPY INSPECTOR 2-4 CNCRNT ANES PROC, QX - OWNER PROFESSIONAL ENGINEER SVC W/ MED DIRECTION, P1 - NORMAL HEALTHY PATIENT
--- NOTE | 2024-06-13 10:45 | W.ANESCHARGE ---
Anesthesia Charges Start Date/Time Anesthesia Start Date: 06/13/24 Anesthesia Start Time: 07:22 Stop Date/Time Anesthesia Stop Date: 06/13/24 Anesthesia Stop Time: 07:47 Coding CPT Codes CPT Codes: GINA LWR INTST SCR COLSC - 52910 ([id number]) QK - HEEL STIFFENER 2-4 CNCRNT ANES PROC, QX - AUTOMATION APPLICATION ENGINEER SVC W/ MED DIRECTION, P1 - NORMAL HEALTHY PATIENT
== END 2024-06-13 06:36 | disposition home or self-care (01) ==
LOC: OP CLINIC 06:38
PROVIDERS: PCP Student in an Organized Health Care Education/Training Program; Visit Provider Internal Medicine Gastroenterology
DX: Z12.11 Encounter for screening for malignant neoplasm of colon (principal)
CPT/HCPCS: 00812; 45378; T1013; J2704